=== PATIENT | female | born 1995 | race Caucasian/White ===

== ENCOUNTER 2017-09-22 12:11 | Emergency (ER) | payer BC, OTHER ==
[2017-09-22] MEDS: SOD CHLORIDE 0.9% 1,000 ML IV (14:29)
[2017-09-22] MEDS: DIPHENHYDRAMINE 50 MG INJ IV (14:30)
[2017-09-22] MEDS: METOCLOPRAMIDE 10 MG INJ IV (14:30)
[2017-09-22] MEDS: KETOROLAC 30 MG INJ IV (14:30)
== END 2017-09-22 15:28 | disposition home or self-care (01) ==
LOC: FTE 12:11
DX: R51 Headache (principal)
CPT/HCPCS: 96374; 96375; 99284-25; J1200